=== PATIENT | male | born 1990 ===

== ENCOUNTER 2023-06-04 13:50 | Emergency (ER) | payer OTHER, SELFPAY ==
[2023-06-04 13:52] VITALS: BP 126/75; PULSE 100; RESP 16; TEMP 37; O2SAT 98; BMI 25.7
--- NOTE | 2023-06-04 13:56 | DI.RAD.S_ITS ---
PROCEDURE: XR KNEE RT 3V INDICATIONS: injury/hyper extended/fall TECHNIQUE: 3 views of the knee were acquired. COMPARISON: None. FINDINGS: Bones: No fractures or dislocations. No suspicious bony lesions. Soft tissues: Small joint effusion. No suspicious soft tissue calcifications. IMPRESSION: No acute fracture identified. Small nonspecific knee effusion. If symptoms persist, follow-up radiographs and/or CT or MRI may be helpful for further evaluation. Dictated by: Alton Cartagena M.D. on 06/04/2023 at 14:41 Approved by: Alton Cartagena M.D. on 06/04/2023 at 14:43
--- NOTE | 2023-06-04 15:03 | ED_ITS ---
HPI - Extremity Injury (Lower) <JOSE Cruz - Last Filed: 06/04/23 15:21> General Chief Complaint: Extremity Injury, Lower Stated Complaint: rt knee has something going on Time Seen by Provider: 06/04/23 15:02 Source: patient Mode of arrival: Ambulatory History of Present Illness HPI Narrative: This is a 33-year-old male presents to the emergency department complaining of right knee pain after hyperextension injury which he states he felt a pop. States this happened a couple of days ago and he is had worsening pain. Patient says he is able to ambulate but it feels unstable. States that he is tried ibuprofen and Tylenol and has not had much benefit yet. Related Data Previous Rx's Medication Instructions Recorded hydrocodone 5 mg-acetaminophen 325 1 tab PO Q6H PRN pain #14 tabs 06/04/23 mg tablet Review of Systems <JOSE Cruz - Last Filed: 06/04/23 15:21> Review of Systems ROS Unobtainable: All systems reviewed & are unremarkable except as noted in HPI and below Patient History <JOSE Cruz - Last Filed: 06/04/23 15:21> Social History Smoking Status: Current every day smoker Smoking Status: Current every day smoker tobacco type: vaping Substance Use Type: does not use Exam <JOSE Cruz - Last Filed: 06/04/23 15:21> Narrative Exam Narrative: Reviewed vitals signs and nursing notes. General: Pleasant, sitting upright, in no acute distress, well groomed, afebrile MSK: moves all extremities, no weakness, normal tone, ambulatory without unsteady gait, patient is unable to fully extend the right leg, positive Antonio's to the right knee, negative Manasa, nontender over MCL and LCL to palpation, no increased laxity with varus and valgus testing, no palpable suprapatellar edema, no tenderness over the patella, pain is in the posterior knee and over the distal hamstring Skin: brisk capillary refill, without rash or wound Neuro: clear speech and normal cognition, A&O x3, GCS 15, no focal motor or sensation deficits Initial Vital Signs Initial Vital Signs: Vital Signs Temperature 98.6 F 06/04/23 13:52 Pulse Rate 100 H 06/04/23 13:52 Respiratory Rate 16 06/04/23 13:52 Blood Pressure 126/75 06/04/23 13:52 Pulse Oximetry 98 06/04/23 13:52 Oxygen Delivery Method Room Air 06/04/23 13:52 <Victoriano Santiago DO - Last Filed: 06/05/23 06:33> Initial Vital Signs Initial Vital Signs: Vital Signs Temperature 98.6 F 06/04/23 13:52 Pulse Rate 100 H 06/04/23 13:52 Respiratory Rate 16 06/04/23 13:52 Blood Pressure 126/75 06/04/23 13:52 Pulse Oximetry 98 06/04/23 13:52 Oxygen Delivery Method Room Air 06/04/23 13:52 Course <AMY CruzP - Last Filed: 06/04/23 15:21> Orders Ordered: ED Orders 06/04/23 13:56 XR knee RT 3V Stat Vital Signs Vital signs: Vital Signs - 8 hr 06/04/23 13:52 Temperature 98.6 F Pulse Rate 100 H Respiratory Rate 16 Blood Pressure 126/75 Pulse Oximetry 98 Oxygen Delivery Method Room Air <Victoriano Santiago DO - Last Filed: 06/05/23 06:33> Orders Ordered: ED Orders 06/04/23 13:56 XR knee RT 3V Stat Vital Signs Vital signs: Vital Signs - 8 hr 06/04/23 13:52 Temperature 98.6 F Pulse Rate 100 H Respiratory Rate 16 Blood Pressure 126/75 Pulse Oximetry 98 Oxygen Delivery Method Room Air MDM - Extremity Injury (Lower) <JOSE Cruz - Last Filed: 06/04/23 15:21> Imaging Data Extremity x-ray #1: Radiologist's Impression: PROCEDURE:? XR KNEE RT 3V ? INDICATIONS:? injury/hyper extended/fall ? TECHNIQUE:? 3 views of the knee were acquired.? ? COMPARISON:? None. ? FINDINGS:? ? Bones:? No fractures or dislocations.? No suspicious bony lesions.? ? Soft tissues:? Small joint effusion.? No suspicious soft tissue calcifications.? ? ? IMPRESSION:? No acute fracture identified. Small nonspecific knee effusion. If symptoms persist, follow-up radiographs and/or CT or MRI may be helpful for further evaluation. ? ? Dictated by: Alton Cartagena M.D. on 06/04/2023 at 14:41 ? ? Approved by: Alton Cartagena M.D. on 06/04/2023 at 14:43 ? MDM Narrative Medical decision making narrative: Chief Complaint: Right knee injury Multiple etiologies for patient's complaint considered including, but not limited to: Meniscal injury, ligamental injury, knee effusion, Schilling cyst, sprain/strain, hamstring injury, avulsion fracture I have independently reviewed the patient's vital signs and nursing notes as well as prior records if available. My independent review of imaging, patient has a mild effusion to the right knee, no evidence of acute fracture avulsion fracture. Exam significant for positive test, inability to straighten leg to full extension and effusion on x-ray, this is most consistent with a right meniscal tear, encourage patient to avoid any jarring activity, take it easy and immobilize his as he came in with a Fitz bandage to the right knee and encouraged him to continue with this, ice, elevate and use NSAIDs. He is given a prescription of hydrocodone to use as needed for this. Social considerations that may affect disposition: none Questions are addressed and there is agreement with the plan and for follow-up at [facility] for further imaging including MRI and follow-up for injury. I consulted with the ED attending physician Dr. Santiago as needed for higher level of care considerations and they were available for discussion and recommendations regarding plan of care and diagnostic testing. Patient is appropriate for outpatient management. Discharge Plan Departure Patient Disposition: Home Clinical Impression: Knee sprain Effusion of knee Qualifiers: Laterality: left Qualified Code(s): M25.462 - Effusion, left knee Instructions: Meniscal Tear, DI for Knee Sprain Activity Restrictions/Additional Instructions: *You have been diagnosed with likely meniscus injury due to the effusion, pain with pressure with twisting the foot into your knee, and lack of ability to fully extend the leg. Hopefully this is not a ligamental injury, please follow-up with [facility] for ongoing assessment and MRI. Ice this frequently, elevate, use ibuprofen 600 mg every 6 hours in conjunction with pain pills as needed. I hope you start feeling better soon, please schedule an appoint with [facility] and ask for urgent follow-up due to instability and concern for ligamental injury. *What to do: *Please continue to take your regular medications as directed. x[ ] New medication prescriptions sent to your pharmacy: [ [facility]] [ ] New medication written as a paper prescription [ ] No new medications given *Please call and schedule follow up with your primary care provider in 2-3 days, at least for an update. Let them know you were seen in the Emergency Department for the above problem. We will electronically transmit a record of today's note if your PCP or specialist is in our system. *If you do not have a primary care provider please contact [phone] to establish care with one of the [facility] primary care providers. *Return to the Emergency Department for worsening symptoms, inability to keep liquids down, fever greater than 101F, chills, or other concerning symptom. Prescriptions: New hydrocodone-acetaminophen 5-325 mg tablet 1 tab PO Q6H PRN (Reason: pain) Qty: 14 0RF Referrals: [facility] [Provider Group] - As soon as possible Stand Alone Forms: Patient Portal/API <Victoriano Santiago DO - Last Filed: 06/05/23 06:33> Cosign ED Attending Katheature Attestation: I was immediately available in the department for consultation. Documentation has been reviewed. I agree with assessment and plan.
[2023-06-04 15:21] VITALS: PULSE 93
== END 2023-06-04 15:21 | disposition home or self-care (01) ==
PROVIDERS: Emergency Provider Nurse Practitioner Critical Care Medicine
DX: S83.92XA Sprain of unspecified site of left knee, initial encounter (principal); M25.462 Effusion, left knee; X50.1XXA Overexertion from prolonged static or awkward postures, initial encounter
CPT/HCPCS: 73562; 99283